=== PATIENT | male | born 1985 | race Caucasian/White ===

== ENCOUNTER 2019-05-19 19:05 | Emergency (ER) | payer BC ==
[~2019-05-19] VITALS: Ht 185.4 cm; Wt 88.6 kg
[2019-05-19 19:09] VITALS: BP 121/63; TEMP 97.5
[2019-05-19] MEDS ORDERED: CEPHALEXIN500 M1 PO (19:48)
[2019-05-19 20:06] VITALS: PULSE 65
== END 2019-05-19 20:06 | disposition home or self-care (01) ==
LOC: COL.ER 19:05
DX: S61.412A Laceration without foreign body of left hand, initial encounter (principal); F90.9 Attention-deficit hyperactivity disorder, unspecified type; Z23 Encounter for immunization; W26.8XXA Contact with other sharp object(s), not elsewhere classified, initial encounter; Y92.009 Unspecified place in unspecified non-institutional (private) residence as the place of occurrence of the external cause

== ENCOUNTER 2023-09-17 08:18 | Emergency (ER) | payer SELFPAY ==
[~2023-09-17] VITALS: Ht 185.4 cm; Wt 90.9 kg
[~2023-09-17 08:18] MED LIST: CEPHALEXIN500 M1 PO
[2023-09-17 08:23] VITALS: BP 154/73; TEMP 97.5
[2023-09-17 09:37] VITALS: PULSE 69
== END 2023-09-17 09:38 | disposition home or self-care (01) ==
LOC: COL.ER 08:18
DX: J02.0 Streptococcal pharyngitis (principal)